=== PATIENT | male | born 1965 | race Caucasian/White ===

== ENCOUNTER 2017-02-08 18:41 | Emergency (ER) | payer OTHER, BC ==
[2017-02-08 18:52] VITALS: BP 147/81
[2017-02-08] MEDS ORDERED: AMOX/CLAV 875 MG/125 MG TABLET PO STA (18:54)
--- NOTE | 2017-02-08 18:56 | ED Physician Documentation ---
PD HPI UPPER EXT INJURY - Stated complaint Stated Complaint: LT PINK LAC - Chief complaint Chief Complaint: Ext Problem - History obtained from History obtained from: Patient - History of Present Illness Location: Left, Finger Type of injury: Puncture wound (cat bite, daniel cat) Where injury occurred: Work ([employer]) Recently seen: Other (tetanus 12/06/12) Review of Systems Constitutional: reports: Reviewed and negative Throat: reports: Reviewed and negative Cardiac: reports: Reviewed and negative PD PAST MEDICAL HISTORY - Past Medical History Cardiovascular: NE, Arrhythmia - Past Surgical History Past Surgical History: No - Present Medications Home Medications: Ambulatory Orders Medication Instructions Recorded Confirmed Amox/Clav 875/125 [Augmentin] 1 each PO Q12H #14 tablet 02/08/17 - Allergies Allergies/Adverse Reactions: Allergies Allergy/AdvReac Type Severity Reaction Status Date / Time No Known Drug Allergies Allergy Verified 12/06/12 15:11 - Social History Does the pt smoke?: No Smoking Status: Never smoker Does the pt drink ETOH?: Yes PD ED PE NORMAL - Vitals Vital signs reviewed: Yes - General General: Alert and oriented X 3, No acute distress - Extremities Extremities: Other (shallow scratch dorsal 5th digit, left over DIP, good ROM) - Psych Psych: Normal mood, Normal affect Results - Vitals Vitals: Vital Signs - 24 hr 02/08/17 18:51 Temperature 36.7 C Heart Rate 77 Respiratory 18 Rate Blood Pressure 147/81 H O2 Saturation 97 Oxygen O2 Source Room air Departure - Departure Disposition: 01 Home, Self Care Clinical Impression: Cat bite of finger Qualifiers: Encounter type: initial encounter Qualified Code(s): S61.259A - Open bite of unspecified finger without damage to nail, initial encounter; W55.01XA - Bitten by cat, initial encounter Condition: Good Record reviewed to determine appropriate education?: Yes Instructions: ED Bite Cat Prescriptions: Amox/Clav 875/125 [Augmentin] 1 each PO Q12H #14 tablet Comments: Your blood pressure was elevated today on check into the emergency department. This does not mean that you have hypertension, it is a common phenomenon to come to the emergency department and have elevated blood pressure. I recommend that she see her primary care physician within the week to have it rechecked when you are feeling better.
[2017-02-08] MEDS ORDERED: AMOX/CLAV 875 MG/125 MG TABLET PO ONE (19:02)
== END 2017-02-08 19:09 | disposition home or self-care (01) ==
LOC: ED 18:41
DX: S61.237A Puncture wound without foreign body of left little finger without damage to nail, initial encounter (principal); W55.01XA Bitten by cat, initial encounter; R03.0 Elevated blood-pressure reading, without diagnosis of hypertension; I25.2 Old myocardial infarction
CPT/HCPCS: 99283; A9270

== ENCOUNTER 2017-04-30 15:50 | Outpatient (CLI) | payer BC | END 2017-04-30 15:51 | disposition critical access hospital (66) | LOC: EMS 15:50 | PROVIDERS: ATTEND Surgery | DX: R42 Dizziness and giddiness (principal); R11.2 Nausea with vomiting, unspecified | CPT/HCPCS: A0425; A0427 ==

== ENCOUNTER 2017-04-30 16:05 | Emergency (ER) | payer BC ==
[2017-04-30] MEDS ORDERED: SODIUM CHLORIDE 0.9% 1,000 ML IV ONE (16:15)
--- NOTE | 2017-04-30 16:20 | ED Physician Documentation ---
History of Present Illness - Stated complaint Stated Complaint: SYNCOPE - Chief complaint Chief Complaint: General - History obtained from History obtained from: Patient, EMS - History of Present Illness Timing: Other (51-year-old gentleman who had a shoulder surgery today, on the way home from the hospital developed nausea and one episode of vomiting with syncope without injury, he was sitting in the car at the time. Now feels back to normal. There is no associated chest pain or trouble breathing. He does have a history of an abnormal EKG necessitating a cardiac workup, he had a cardiac MRI showing some wall thickening and he has a chronic murmur, but a negative stress test.) Review of Systems Constitutional: denies: Fever, Chills Cardiac: denies: Chest pain / pressure, Palpitations Respiratory: denies: Dyspnea, Cough GI: denies: Abdominal Pain PD PAST MEDICAL HISTORY - Past Medical History Past Medical History: Yes Cardiovascular: Murmur, Arrhythmia - Past Surgical History Past Surgical History: Yes Ortho: Rotator cuff repair - Present Medications Home Medications: Ambulatory Orders Medication Instructions Recorded Confirmed No Known Home Medications [No 04/30/17 04/30/17 Known Home Medications] - Allergies Allergies/Adverse Reactions: Allergies Allergy/AdvReac Type Severity Reaction Status Date / Time No Known Drug Allergies Allergy Verified 12/06/12 15:11 - Social History Does the pt smoke?: No Smoking Status: Never smoker Does the pt drink ETOH?: Yes PD ED PE NORMAL - Vitals Vital signs reviewed: Yes - General General: Alert and oriented X 3, No acute distress - HEENT HEENT: PERRL, EOMI - Neck Neck: Supple, no meningeal sign, No bony TTP - Cardiac Cardiac: RRR, Strong equal pulses, Other (2 out of 6 blowing systolic murmur heard best at the apex) - Respiratory Respiratory: No respiratory distress, Clear bilaterally - Abdomen Abdomen: Non tender - Extremities Extremities: No edema, No calf tenderness / cord - Neuro Neuro: Alert and oriented X 3, Normal speech - Psych Psych: Normal mood, Normal affect Results - Vitals Vitals: Vital Signs - 24 hr 04/30/17 04/30/17 16:08 16:57 Temperature 36.0 C L Heart Rate 57 L 61 Respiratory 12 13 Rate Blood Pressure 110/82 H 117/66 O2 Saturation 100 100 Oxygen O2 Source Room air - EKG (time done) 1621 Rate: Rate (enter#) (56) Rhythm: NSR [place]: Normal Intervals: Normal NC QRS: Normal Ischemia: Non specific changes (Inferior and lateral T-wave inversion which was present on EKG obtained from Dr. pickett's office dated March 24, 2017.) Compare to prior EKG: Unchanged from prior EKG Computer interpretation: Agree with computer - Labs Labs: Laboratory Tests 04/30/17 04/30/17 16:30 16:30 WBC 6.7 RBC 4.78 Hgb 14.0 Hct 42.7 MCV 89.3 MCH 29.4 MCHC 32.9 RDW 13.2 Plt Count 127 L MPV 9.8 Neut # 5.1 Lymph # 1.0 L Allen # 0.4 Eos # 0.0 Baso # 0.0 Absolute Nucleated RBC 0.00 Nucleated RBC % 0.0 Manual Slide Review Indicated Platelet Estimate NORMAL (130-450,000) Platelet Morphology NORMAL APPEARANCE RBC Morph Micro Appear NORMAL APPEARANCE Sodium 137 Potassium 3.6 Chloride 108 Carbon Dioxide 23 Anion Gap 6.0 BUN 15 Creatinine 0.9 Estimated GFR (MDRD) 88 L Glucose 115 H Calcium 8.1 L Total Bilirubin 1.0 AST 19 ALT 17 Alkaline Phosphatase 49 Total Protein 6.1 L Albumin 3.6 Globulin 2.5 Albumin/Globulin Ratio 1.4 Lipase 25 PD MEDICAL DECISION MAKING - ED course ED course: 51-year-old gentleman who had a syncopal episode today, consistent with vasovagal syncope as he was vomiting, postoperative nausea and vomiting, at that time. No acute changes on EKG and he felt fine here. Departure - Departure Disposition: 01 Home, Self Care Clinical Impression: Vasovagal syncope Condition: Good Record reviewed to determine appropriate education?: Yes Instructions: ED Syncope Vasovagal Comments: Call your doctor to arrange a follow-up appointment, make the next available appointment. In the interim, return anytime if worse or if new symptoms develop.
[2017-04-30 16:47] LABS: BASOPHILS % (AUTO) 0.5 %; EOSINOPHILS % (AUTO) 0.5 %; HCT - HEMATOCRIT 42.7 % (42.0-52.0); LYMPHOCYTES % (AUTO) 15.2 %; MEAN CORPUSCULAR HEMOGLOBIN 29.4 pg (27.0-31.0); MEAN CORPUSCULAR HGB CONC 32.9 g/dL (32.0-36.0); MEAN CORPUSCULAR VOLUME 89.3 fL (80.0-94.0); MEAN PLATELET VOLUME 9.8 fL (7.4-11.4); MONOCYTES # (AUTO) 0.4 10^3/uL (0.0-1.0); MONOCYTES % (AUTO) 6.5 %; NEUTROPHILS # (AUTO) 5.1 10^3/uL (1.5-6.6); NEUTROPHILS % (AUTO) 77.3 %; RED BLOOD COUNT 4.78 10^6/uL (4.70-6.10); RED CELL DISTRIBUTION WIDTH 13.2 % (12.0-15.0); UNCORRECTED WHITE BLOOD COUNT 6.7 x10^3/uL; WHITE BLOOD COUNT 6.7 x10^3/uL (4.8-10.8)
[2017-04-30 16:50] LABS: ALBUMIN/GLOBULIN RATIO 1.4 (1.0-2.2); CALCIUM 8.1 mg/dL (8.5-10.3); CREATININE 0.9 mg/dL (0.6-1.2); POTASSIUM 3.6 mmol/L (3.5-5.0); TOTAL PROTEIN 6.1 g/dL (6.7-8.2)
[2017-04-30 17:01] LABS: PLATELET ESTIMATE, MANUAL NORMAL (130-450,000) (NORMAL); PLATELET MORPHOLOGY NORMAL APPEARANCE (NORMAL)
[2017-04-30 17:31] VITALS: BP 120/74
== END 2017-04-30 17:32 | disposition home or self-care (01) ==
LOC: EDUNIT# → ED 16:05
DX: R55 Syncope and collapse (principal); R11.2 Nausea with vomiting, unspecified; Z98.890 Other specified postprocedural states
CPT/HCPCS: 36415; 80053; 83690; 85025; 93005; 96360; 99283; 99284

== ENCOUNTER 2018-03-08 20:42 | Outpatient (CLI) | payer BC | END 2018-03-08 20:43 | disposition short-term general hospital (02) | LOC: EMS 20:42 | PROVIDERS: ATTEND Surgery | DX: R07.9 Chest pain, unspecified (principal) | CPT/HCPCS: A0425; A0427 ==

== ENCOUNTER 2019-05-02 12:07 | Outpatient (CLI) | payer BC ==
--- NOTE | 2019-05-03 11:31 | XRAY Report ---
Reason: ARM PAIN, LEFT Procedure Date: 05/02/2019 Accession Number: [id number] / [id number] Procedure: XR - Elbow 3 View LT CPT Code: FULL RESULT: EXAM: LEFT ELBOW RADIOGRAPHY EXAM DATE: 05/02/2019 12:33 PM. CLINICAL HISTORY: ARM PAIN, LEFT. COMPARISON: None. TECHNIQUE: 3 views. FINDINGS: Bones: There is a tiny sized bony spur in the posterior base of the olecranon. No fractures or bone lesions. Joints: No significant degenerative process. No effusion. No subluxation. Soft Tissues: No soft tissue calcification. IMPRESSION: Negative left elbow radiography. [facility]
== END 2019-05-02 12:08 | disposition home or self-care (01) ==
LOC: DI 12:07
PROVIDERS: ATTEND Family Medicine
DX: M79.602 Pain in left arm (principal)

== ENCOUNTER 2023-05-22 08:19 | Outpatient (CLI) | payer BC ==
[2023-05-22 12:32] LABS: BASOPHILS % (AUTO) 0.9 %; EOSINOPHILS # (AUTO) 0.1 10^3/uL (0.0-0.7); EOSINOPHILS % (AUTO) 2.2 %; HGB - HEMOGLOBIN 14.5 g/dL (14.0-18.0); LYMPHOCYTES # (AUTO) 1.2 10^3/uL (1.5-3.5); LYMPHOCYTES % (AUTO) 25.4 %; MEAN CORPUSCULAR HGB CONC 32.2 g/dL (32.0-36.0); MEAN PLATELET VOLUME 12.8 fL (7.4-11.4); MONOCYTES # (AUTO) 0.5 10^3/uL (0.0-1.0); NEUTROPHILS # (AUTO) 2.8 10^3/uL (1.5-6.6); NEUTROPHILS % (AUTO) 61.1 %; PLT - PLATELET COUNT 144 10^3/uL (130-450); RED CELL DISTRIBUTION WIDTH 12.7 % (12.0-15.0); WHITE BLOOD COUNT 4.5 x10^3/uL (4.8-10.8)
[2023-05-22 12:59] LABS: BUN - BLOOD UREA NITROGEN 15 mg/dL (6-20); CALCIUM 9.3 mg/dL (8.5-10.3); CARBON DIOXIDE - CO2 28 mmol/L (21-32); CHLORIDE 107 mmol/L (101-111); CHOL/HDL RATIO 3.3 (<5.0); CHOLESTEROL 156 mg/dL; CREATININE 0.9 mg/dL (0.6-1.3); GFR - MDRD 86 (>89); GLUCOSE 96 mg/dL (74-104); HDL CHOLESTEROL 48 mg/dL; LDL CHOLESTEROL,CALCULATED 96 mg/dL; POTASSIUM 4.7 mmol/L (3.5-4.5); SODIUM 138 mmol/L (135-145); TRIGLYCERIDES 60 mg/dL (48-352); VLDL CHOLESTEROL 12 mg/dL
== END 2023-05-22 08:20 | disposition home or self-care (01) ==
LOC: LAB.N 08:19
PROVIDERS: ATTEND Internal Medicine Cardiovascular Disease
DX: Z00.00 Encounter for general adult medical examination without abnormal findings (principal); I49.3 Ventricular premature depolarization
CPT/HCPCS: 36415; 80048; 80061; 83721; 85025

== ENCOUNTER 2023-12-15 15:16 | Outpatient (CLI) | payer BC ==
[2023-12-15 15:32] LABS: BASOPHILS % (AUTO) 0.4 %; EOSINOPHILS # (AUTO) 0.2 10^3/uL (0.0-0.7); EOSINOPHILS % (AUTO) 2.7 %; HCT - HEMATOCRIT 44.5 % (42.0-52.0); HGB - HEMOGLOBIN 14.4 g/dL (14.0-18.0); LYMPHOCYTES # (AUTO) 1.5 10^3/uL (1.5-3.5); LYMPHOCYTES % (AUTO) 20.9 %; MEAN CORPUSCULAR HEMOGLOBIN 29.2 pg (27.0-31.0); MEAN CORPUSCULAR HGB CONC 32.4 g/dL (32.0-36.0); MEAN CORPUSCULAR VOLUME 90.3 fL (80.0-94.0); MONOCYTES # (AUTO) 0.7 10^3/uL (0.0-1.0); MONOCYTES % (AUTO) 9.3 %; NEUTROPHILS # (AUTO) 4.6 10^3/uL (1.5-6.6); NEUTROPHILS % (AUTO) 66.6 %; PLT - PLATELET COUNT 159 10^3/uL (130-450); RED BLOOD COUNT 4.93 10^6/uL (4.70-6.10); RED CELL DISTRIBUTION WIDTH 12.6 % (12.0-15.0)
[2023-12-15 16:08] LABS: THYROID STIMULATING HORMONE 0.77 uIU/mL (0.34-5.60)
[2023-12-15 16:21] LABS: ALBUMIN 4.2 g/dL (3.2-5.5); ALBUMIN/GLOBULIN RATIO 1.4 (1.0-2.2); ALKALINE PHOSPHATASE 67 IU/L (42-121); ALT ALANINE AMINOTRANSFERASE 15 IU/L (10-60); AST ASPARTATE AMINOTRANSFERASE 22 IU/L (10-42); BILIRUBIN,TOTAL 0.8 mg/dL (0.2-1.0); BUN - BLOOD UREA NITROGEN 18 mg/dL (6-20); CALCIUM 9.5 mg/dL (8.5-10.3); CARBON DIOXIDE - CO2 28 mmol/L (21-32); CHLORIDE 106 mmol/L (101-111); CHOL/HDL RATIO 2.8 (<5.0); CHOLESTEROL 142 mg/dL; CRP - C-REACTIVE PROTEIN < 0.5 mg/dL (<0.5); GFR - MDRD 76 (>89); GLUCOSE 103 mg/dL (74-104); HDL CHOLESTEROL 51 mg/dL; LDL CHOLESTEROL,CALCULATED 75 mg/dL; LDL/HDL RATIO 1.5 (<3.6); POTASSIUM 4.5 mmol/L (3.5-4.5); SODIUM 137 mmol/L (135-145); TOTAL PROTEIN 7.1 g/dL (6.4-8.9); TRIGLYCERIDES 81 mg/dL (48-352); VLDL CHOLESTEROL 16 mg/dL
== END 2023-12-15 15:17 | disposition home or self-care (01) ==
LOC: LAB 15:16
PROVIDERS: ATTEND Family Medicine
DX: M60.9 Myositis, unspecified (principal); Z12.5 Encounter for screening for malignant neoplasm of prostate
CPT/HCPCS: 36415; 80053; 80061; 83721; 84153; 84443; 85025; 85651; 86140

== ENCOUNTER 2024-01-04 13:45 | Outpatient (CLI) | payer BC ==
--- NOTE | 2024-01-04 21:51 | MRI Report ---
PROCEDURE: Lower Leg (Tib-Fib) LT WO INDICATIONS: MYALGIA AND MYOSITIS TECHNIQUE: Noncontrast coronal and sagittal T1 spin echo and STIR; axial T1 spin echo and T2 fast spin echo with fat saturation through the left leg. COMPARISON: None. FINDINGS: Image quality: Excellent. Bones: A nutrient canal is seen in the mid tibia diaphysis. There is patchy marrow edema of the dista l tibial diaphysis, without fracture line, nonspecific and may represent stress changes. Marrow signa l of the fibula is unremarkable. Soft tissue: Minimal muscle edema of the lateral and medial head of the gastrocnemius. No significant muscle fatty atrophy. No significant knee effusion. No popliteal cyst. Varicose vein is noted in the proximal leg. Mild subcutaneous edema in the distal leg. No fluid tracking along the deep intermuscu lar fascia. IMPRESSION: 1.Patchy marrow edema of the distal tibial diaphysis, without fracture line, nonspecific and may repr esent stress changes. 2.Minimal muscle edema of the gastrocnemius, nonspecific and may represent mild muscle strain versus myositis given patient's history. Reviewed by: Monique Rai MD on 01/04/2024 9:50 PM PDT Approved by: Monique Rai MD on 01/04/2024 9:50 PM PDT Station ID: [id number]
--- NOTE | 2024-01-05 09:07 | Ultrasound Report ---
PROCEDURE: Duplex Ext Veins Bilateral INDICATIONS: Rocco Chatman MD TECHNIQUE: Real-time imaging, as well as color and pulse Doppler interrogation, were performed of the deep veins of both legs from the inguinal ligament to the popliteal fossa. Attempted visualization of the calf veins was performed. COMPARISON: None available. FINDINGS: The deep veins are normally compressible, and free of intraluminal thrombus. Color and pu lse Doppler demonstrate normal phasic intravascular flow. There is normal augmentation response to d istal compression maneuver. IMPRESSION: No deep venous thrombosis of the visualized lower extremities. Reviewed by: Chiqui Reyes MD on 01/05/2024 8:05 AM [facility] Approved by: Chiqui Reyes MD on 01/05/2024 8:05 AM MERT Station ID: [id number]
== END 2024-01-04 13:46 | disposition home or self-care (01) ==
LOC: DI 13:45
PROVIDERS: ATTEND Family Medicine
DX: M60.9 Myositis, unspecified (principal); R93.6 Abnormal findings on diagnostic imaging of limbs; R60.0 Localized edema
CPT/HCPCS: 93970